=== PATIENT | female | born 1995 | race American Indian/Alaskan Native ===

== ENCOUNTER 2017-01-14 09:10 | Emergency (ER) | payer BC, OTHER ==
--- NOTE | 2017-01-14 10:16 | Cat Scan Report ---
CT HEAD WITHOUT CONTRAST:01/14/17 10:00 CLINICAL: Fall and trauma to the head. TECHNIQUE: 2.5-mm noncontrast scans. COMPARISON:None FINDINGS: The distal sulci are normal for age. No abnormal hypodensity. No mass or mass effect. No hemorrhage, edema or extra-axial collection. The sinuses are clear. Normal orbits and soft tissues. The calvarium and skull base are intact. IMPRESSION: Normal study.
[2017-01-14 10:30] LABS: Alanine Aminotransferase 6 units/L (7-56); Albumin 4.1 g/dL (3.9-5); Albumin/Globulin Ratio 1.1 %; Alkaline Phosphatase 60 units/L (35-129); Anion Gap 19 mmol/L; Blood Urea Nitrogen 12 mg/dL (7-17); Calcium 9.1 mg/dL (8.4-10.2); Carbon Dioxide 23 mmol/L (22-30); Chloride 100.2 mmol/L (98-107); Glucose 95 mg/dL (65-100); Potassium 4.1 mmol/L (3.6-5.0); Sodium 138 mmol/L (137-145); Total Protein 7.9 g/dL (6.3-8.2)
[2017-01-14 11:59] LABS: Basophils % (Auto) 0.9 % (0.0-1.8); Eosinophils % (Auto) 0.9 % (0.0-4.3); Hematocrit 34.7 % (30.3-42.9); Hemoglobin 10.9 gm/dl (10.1-14.3); Mean Corpuscular HGB Conc 31 % (30-34); Mean Corpuscular Volume 75 fl (79-97); Platelet Count 325 K/mm3 (140-440); Red Cell Distribution Width 18.4 % (13.2-15.2); White Blood Count 6.9 K/mm3 (4.5-11.0)
[2017-01-14 12:00] LABS: Mean Corpuscular Hemoglobin 24 pg (28-32)
[2017-01-14] MEDS ORDERED: NACL ONE (14:31)
--- NOTE | 2017-01-14 15:20 | Cat Scan Report ---
FINAL REPORT PROCEDURE: CT ANGIO CHEST TECHNIQUE: Computerized tomographic angiography of the chest was performed after the IV injection of iodinated nonionic contrast including image processing. The image data was postprocessed using 2-dimensional multiplanar reformatted (MPR) and 3-dimensional (MIP and/or volume rendered) techniques. HISTORY: chest pain, sob, syncope COMPARISON: No prior studies are available for comparison. FINDINGS: Heart and pericardium: No pericardial effusion or thickening. Thoracic aorta: Normal. Pulmonary vasculature: Normal. Lymph nodes: No enlarged thoracic lymph nodes. Lungs: Normal. Pleural space: No effusion, thickening, or pneumothorax. Musculoskeletal structures: No significant abnormality. Upper abdominal structures: No significant abnormality. IMPRESSION: No evidence of pulmonary emboli
[2017-01-14 16:05] VITALS: BP 104/78
--- NOTE | 2017-01-14 16:27 | Emergency Department Report ---
HPI - General Chief Complaint: Multiple Trauma Time Seen by Provider: 01/14/17 13:34 - HPI HPI: patient states she has a h/o syncopal episodes for years, and had another episodes this morning, states she fell hit her head and her chest. patient c/o chest pain after fall, states she landed face forward on her chest. no fever, no neck pain. ED Past Medical Hx - Past Medical History Additional medical history: anemia, syncope - Surgical History Past Surgical History?: No - Family History Family history: hypertension - Social History Smoking Status: Never Smoker - Medications Home Medications: Home Medications Medication Instructions Recorded Confirmed Last Taken Type HYDROcodone/APAP 5-325 [Roland 1 each PO Q6HR PRN #20 tablet 03/10/15 Unknown Rx 5/325] Ibuprofen [Motrin] 600 mg PO Q8H PRN #30 tablet 03/10/15 Unknown Rx Promethazine [Phenergan TAB] 25 mg PO Q6HR PRN #20 tab 03/10/15 Unknown Rx ED Review of Systems ROS: Stated complaint: CHEST PAIN/HEAD INJURY/FALL Other details as noted in HPI Comment: All other systems reviewed and negative Cardiovascular: chest pain Neurological: other (syncope) Physical Exam - Physical Exam Vital Signs: Vital Signs 01/14/17 01/14/17 01/14/17 09:23 13:45 14:00 Temperature 98.2 F Pulse Rate 76 70 73 Respiratory 18 14 15 Rate Blood Pressure 117/82 112/80 O2 Sat by Pulse 100 100 100 Oximetry 01/14/17 01/14/17 14:15 14:30 Temperature Pulse Rate 70 67 Respiratory 18 19 Rate Blood Pressure 112/80 104/78 O2 Sat by Pulse 100 100 Oximetry Physical Exam: Physical Exam: - General Limitations: No Limitations General appearance: alert, in no apparent distress - Head Head exam: Present: atraumatic, normocephalic - Eye Eye exam: Present: normal appearance - ENT ENT exam: Present: mucous membranes moist - Neck Neck exam: Present: normal inspection - Respiratory Respiratory exam: Present: normal lung sounds bilaterally. Absent: respiratory distress - Cardiovascular Cardiovascular Exam: Present: normal rhythm. Absent: systolic murmur, diastolic murmur, rubs, gallop - GI/Abdominal GI/Abdominal exam: Present: soft, normal bowel sounds - Extremities Exam Extremities exam: Present: normal inspection - Back Exam Back exam: Present: normal inspection - Neurological Exam Neurological exam: Present: alert, oriented X3, - Skin Skin exam: Present: warm, dry, intact, normal color. Absent: rash ED Course Vital Signs 01/14/17 01/14/17 01/14/17 09:23 13:45 14:00 Temperature 98.2 F Pulse Rate 76 70 73 Respiratory 18 14 15 Rate Blood Pressure 117/82 112/80 O2 Sat by Pulse 100 100 100 Oximetry 01/14/17 01/14/17 14:15 14:30 Temperature Pulse Rate 70 67 Respiratory 18 19 Rate Blood Pressure 112/80 104/78 O2 Sat by Pulse 100 100 Oximetry ED Medical Decision Making - Lab Data Result diagrams: 01/14/17 09:53 01/14/17 09:53 Critical care attestation.: If time is entered above; I have spent that time in minutes in the direct care of this critically ill patient, excluding procedure time. ED Disposition Clinical Impression: Syncope Qualifiers: Syncope type: unspecified Qualified Code(s): R55 - Syncope and collapse Disposition: DC-01 TO HOME OR SELFCARE Is pt being admited?: No Does the pt Need Aspirin: No Condition: Stable Instructions: Syncope (ED) Referrals: PRIMARY CARE, [Primary Care Provider] - 3-5 Days
== END 2017-01-14 16:40 | disposition home or self-care (01) ==
LOC: ED 09:10
DX: R55 Syncope and collapse (principal); D64.9 Anemia, unspecified
CPT/HCPCS: 36415; 70450; 71275; 80053; 82140; 82962; 83735; 84443; 85025; 93005; 93010; 99284; G0480; Q9967; 80320